=== PATIENT | male | born 1940 | race Caucasian/White ===

== ENCOUNTER 2023-01-07 11:12 | Emergency (ER) | payer MEDICARE ==
[2023-01-07 11:43] VITALS: BP 175/84; PULSE 88; RESP 18; TEMP 97.6
[2023-01-07] MEDS ORDERED: CYCLOBENZAPRINE 5 MG TAB PO STA (12:29)
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
[2023-01-07] MEDS ORDERED: IBUPROFEN 800 MG TAB PO STA (13:27)
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
== END 2023-01-07 14:16 | disposition home or self-care (01) ==
LOC: EC 11:12
DX: S22.49XA Multiple fractures of ribs, unspecified side, initial encounter for closed fracture (principal); S00.03XA Contusion of scalp, initial encounter; E78.5 Hyperlipidemia, unspecified; I10 Essential (primary) hypertension; K21.9 Gastro-esophageal reflux disease without esophagitis; M19.90 Unspecified osteoarthritis, unspecified site; E11.9 Type 2 diabetes mellitus without complications; E07.9 Disorder of thyroid, unspecified; Z87.891 Personal history of nicotine dependence; Z79.890 Hormone replacement therapy; Z79.899 Other long term (current) drug therapy; V49.40XA Driver injured in collision with unspecified motor vehicles in traffic accident, initial encounter
CPT/HCPCS: 70450; 71046; 72125; 99285